=== PATIENT | female | born 1965 | race Hispanic/Latino ===

== ENCOUNTER 2017-09-16 09:35 | Outpatient (CLI) | payer BC ==
--- NOTE | 2017-09-16 11:17 | XRay Report ---
XRAY KNEE 4 THREE VIEWS: 09/16/17 CLINICAL: Osteoarthritis and pain. No comparison. FINDINGS: Status post total joint replacement with normal appearance of the prosthesis. No apparent loosening. Moderate diffuse osteopenia. No fracture or dislocation.Moderate anterior soft tissue edema.No definite joint effusion. IMPRESSION: Status post total knee replacement. Nonspecific anterior soft tissue edema.
== END 2017-09-16 09:36 | disposition home or self-care (01) ==
LOC: SPVIMAG 09:35
PROVIDERS: ATTEND Orthopaedic Surgery Sports Medicine
DX: M85.861 Other specified disorders of bone density and structure, right lower leg (principal); Z96.651 Presence of right artificial knee joint; E11.9 Type 2 diabetes mellitus without complications; I10 Essential (primary) hypertension; E78.00 Pure hypercholesterolemia, unspecified